=== PATIENT | female | born 1960 | race Caucasian/White ===

== ENCOUNTER → 2021-01-17 | Outpatient (CLI) | payer OTHER ==
[~2021-01-17] MED LIST: ALPRAZOLAM0.5 MG PO; ARMOUR THYROID60 MG PO; CATAPRES 0.1MG0.1 MG PO; FETZIMA40 MG PO; GLUCOPHAGE500 MG PO; LIPITOR TAB 2020 MG PO; LORTAB 5-325 M1 EACH PO; NEURONTIN 100100 MG PO; OMEPRAZOLE40 MG PO; POLYOX WSR-3011 GM MC; REGLAN10 MG PO; REMERON15 MG PO; SOMA350 MG PO; TENORMIN 25 MG25 MG PO; VITAMIN D5000 UNIT PO; Voltaren Gel 1 % TOP
== END ==
LOC: KOH-I 15:00
DX: M51.36 Other intervertebral disc degeneration, lumbar region (principal); M47.817 Spondylosis without myelopathy or radiculopathy, lumbosacral region
CPT/HCPCS: 72100

== ENCOUNTER → 2021-03-14 | Outpatient (CLI) | payer OTHER ==
[2021-03-14 14:11] LABS: HEMOGLOBIN 13.6 gm/dl (12.3-15.3); RED BLOOD COUNT 4.24 M/UL (4.00-5.10); WHITE BLOOD COUNT 6.1 K/UL (4.5-11.0)
[2021-03-14 14:31] LABS: BUN/CREATININE RATIO 20 (0-10)
[2021-03-15 08:14] LABS: VITAMIN D, 25-HYDROXY 73.3 ng/mL (30.0-100.0)
[2021-03-16 13:10] LABS: CREATININE, URINE 37.1 mg/dL (Not Estab.); MICROALB/CREAT RATIO <8 (0-29)
== END ==
LOC: LAB 13:34
PROVIDERS: Family Medicine
DX: E03.9 Hypothyroidism, unspecified (principal); E55.9 Vitamin D deficiency, unspecified; K21.9 Gastro-esophageal reflux disease without esophagitis; E11.9 Type 2 diabetes mellitus without complications; Z79.899 Other long term (current) drug therapy
CPT/HCPCS: 36415; 80053; 80061; 82043; 82570; 82607; 83735; 84439; 84443; 84481; 85027

== ENCOUNTER → 2021-04-21 | Outpatient (CLI) | payer OTHER | LOC: EMI 12:57 | DX: G44.89 Other headache syndrome (principal); H93.19 Tinnitus, unspecified ear; H81.90 Unspecified disorder of vestibular function, unspecified ear; J32.1 Chronic frontal sinusitis; I99.8 Other disorder of circulatory system | CPT/HCPCS: 70551 ==

== ENCOUNTER → 2021-10-19 | Outpatient (CLI) | payer OTHER | LOC: KOH-I 09-19 10:00 | DX: Z87.891 Personal history of nicotine dependence (principal) | CPT/HCPCS: 71271 ==

== ENCOUNTER → 2021-10-27 | Outpatient (CLI) | payer OTHER ==
[2021-10-27 12:51] LABS: HEMOGLOBIN 15.5 gm/dl (12.3-15.3); RED BLOOD COUNT 4.84 M/UL (4.00-5.10); WHITE BLOOD COUNT 8.2 K/UL (4.5-11.0)
[2021-10-28 10:13] LABS: A/G RATIO 1.8 (1.2-2.2); ALKALINE PHOSPHATASE, S 111 IU/L (44-121); ALT (SGPT) 16 IU/L (0-32); AST (SGOT) 16 IU/L (0-40); BILIRUBIN, TOTAL 0.3 mg/dL (0.0-1.2); BUN 20 mg/dL (8-27); BUN/CREATININE RATIO 19 (12-28); CALCIUM, SERUM 9.6 mg/dL (8.7-10.3); CARBON DIOXIDE, TOTAL 21 mmol/L (20-29); CHLORIDE, SERUM 98 mmol/L (96-106); CHOLESTEROL, TOTAL 209 mg/dL (100-199); CREATININE, SERUM 1.04 mg/dL (0.57-1.00); EGFR IF AFRICN AM 67 (>59); EGFR IF NONAFRICN AM 59 (>59); ESTIM. AVG GLU (EAG) 194 mg/dL (.); GLOBULIN, TOTAL 2.6 g/dL (1.5-4.5); GLUCOSE, SERUM 215 mg/dL (65-99); HDL CHOLESTEROL 42 mg/dL (>39); HEMOGLOBIN A1C 8.4 % (4.8-5.6); LDL CHOLESTEROL CALC 131 mg/dL (0-99); LDL/HDL RATIO 3.1 ratio (0.0-3.2); MAGNESIUM 2.1 mg/dL (1.6-2.3); POTASSIUM, SERUM 4.6 mmol/L (3.5-5.2); PROTEIN, TOTAL, SERUM 7.3 g/dL (6.0-8.5); SODIUM, SERUM 137 mmol/L (134-144); TRIGLYCERIDES 203 mg/dL (0-149); VITAMIN D, 25-HYDROXY 67.5 ng/mL (30.0-100.0)
== END ==
LOC: LAB 11:54
PROVIDERS: Family Medicine
DX: E11.9 Type 2 diabetes mellitus without complications (principal); K21.9 Gastro-esophageal reflux disease without esophagitis; Z79.899 Other long term (current) drug therapy; E03.9 Hypothyroidism, unspecified; E55.9 Vitamin D deficiency, unspecified; E78.5 Hyperlipidemia, unspecified
CPT/HCPCS: 36415; 80053; 80061; 82607; 83036; 83735; 84439; 84443; 85027

== ENCOUNTER → 2021-12-16 | Outpatient (CLI) | payer OTHER ==
[2021-12-16 13:27] LABS: BUN/CREATININE RATIO 20 (0-10)
== END ==
LOC: LAB 11:54
PROVIDERS: Family Medicine
DX: E03.9 Hypothyroidism, unspecified (principal); R94.4 Abnormal results of kidney function studies
CPT/HCPCS: 36415; 80048; 84439; 84443; 84481

== ENCOUNTER → 2022-06-05 | Outpatient (CLI) | payer OTHER ==
[2022-06-05 12:50] LABS: HEMOGLOBIN 13.3 gm/dl (12.3-15.3); RED BLOOD COUNT 4.01 M/UL (4.00-5.10); WHITE BLOOD COUNT 10.9 K/UL (4.5-11.0)
[2022-06-05 13:15] LABS: BUN/CREATININE RATIO 24 (0-10)
[2022-06-06 08:13] LABS: VITAMIN D, 25-HYDROXY 60.8 ng/mL (30.0-100.0)
[2022-06-06 12:14] LABS: CREATININE, URINE 46.8 mg/dL (Not Estab.)
== END ==
LOC: LAB 12:27
PROVIDERS: Family Medicine
DX: E03.9 Hypothyroidism, unspecified (principal); E55.9 Vitamin D deficiency, unspecified; E78.5 Hyperlipidemia, unspecified
CPT/HCPCS: 36415; 80053; 80061; 82043; 82570; 83735; 84439; 84443; 84481; 85027